=== PATIENT | female | born 1945 | race Caucasian/White ===

== ENCOUNTER → 2023-01-10 | Outpatient (REF) | payer MEDICARE | LOC: M SFHCDERM 14:48 | PROVIDERS: ATTEND Nurse Practitioner Family | DX: B35.1 Tinea unguium (principal) ==

== ENCOUNTER 2023-09-19 12:07 | Day surgery (SDC) | payer MEDICARE ==
[~2023-09-19] VITALS: Ht 154.9 cm; Wt 45.8 kg
[~2023-09-19 12:07] MED LIST: ATOR1TAB21 PO; B-122500 PO; CLON0.5T2 PO; METF-838 PO; NS 1,000 ML IV ONE; SERT50TA29 PO
[2023-09-19] MEDS ORDERED: MIDAZOLAM INJ 2MG/2ML VIAL As Ordered ONE (13:19)
[2023-09-19] MEDS ORDERED: propofoL 200 MG/20 ML VIAL As Ordered ONE (13:35)
[2023-09-19 13:36] VITALS: TEMP 97.3
[2023-09-19] MEDS ORDERED: LIDOCAINE 2% 100MG/5ML SDV (FOR ANES.) As Ordered ONE (13:36)
[2023-09-19 13:58] VITALS: BP 114/55; O2SAT 98
== END 2023-09-19 14:12 | disposition home or self-care (01) ==
LOC: M OPP 12:07
PROVIDERS: ATTEND Internal Medicine Gastroenterology
DX: R13.14 Dysphagia, pharyngoesophageal phase (principal); R13.12 Dysphagia, oropharyngeal phase; E11.9 Type 2 diabetes mellitus without complications; Z79.02 Long term (current) use of antithrombotics/antiplatelets; Z79.2 Long term (current) use of antibiotics; Z79.84 Long term (current) use of oral hypoglycemic drugs; Z79.899 Other long term (current) drug therapy; Z88.8 Allergy status to other drugs, medicaments and biological substances; Z91.040 Latex allergy status
CPT/HCPCS: 43249; 93005; J2250